=== PATIENT | male | born 1985 | race Caucasian/White ===

== ENCOUNTER 2019-01-17 10:02 | Emergency (ER) | payer SELFPAY ==
[2019-01-17] MEDS ORDERED: Fluorescein Opthalmic Strip ONE ×2 (10:51→11:34)
--- NOTE | 2019-01-17 12:26 | CT ---
FCT orbits noncontrast HISTORY: Blurred vision right eye. Recent injury. Possible foreign body. FINDINGS: Each globe is intact. Orbital musculature is symmetric and within normal limits. No radiopa que foreign bodies are apparent. Mild mucosal thickening of the ethmoid air cells. IMPRESSION: No CT evidence of foreign body or other acute abnormalities of the orbits.
== END 2019-01-17 12:35 | disposition home or self-care (01) ==
LOC: NAV ERS 10:02
DX: S05.01XA Injury of conjunctiva and corneal abrasion without foreign body, right eye, initial encounter (principal); I10 Essential (primary) hypertension; F17.210 Nicotine dependence, cigarettes, uncomplicated; Z79.82 Long term (current) use of aspirin; Z79.899 Other long term (current) drug therapy; Z86.73 Personal history of transient ischemic attack (TIA), and cerebral infarction without residual deficits; W45.8XXA Other foreign body or object entering through skin, initial encounter
CPT/HCPCS: 70480